=== PATIENT | male | born 1990 | race African-American/Black ===

== ENCOUNTER 2018-11-24 17:06 | Emergency (ER) | payer MEDICAID ==
[~2018-11-24] VITALS: Ht 175.3 cm; Wt 82.0 kg
[~2018-11-24 17:06] MED LIST: HYDR1TAB4 PO; SULF-165 PO
[2018-11-24] MEDS ORDERED: HYDROCODONE/ACETAMINOPHEN 5/325MG TABLET PO ONE (18:45)
[2018-11-24 20:42] VITALS: BP 112/76
== END 2018-11-24 20:42 | disposition home or self-care (01) ==
LOC: ER 17:06
DX: S92.252A Displaced fracture of navicular [scaphoid] of left foot, initial encounter for closed fracture (principal); J45.909 Unspecified asthma, uncomplicated; F12.10 Cannabis abuse, uncomplicated; Z79.899 Other long term (current) drug therapy; Y04.0XXA Assault by unarmed brawl or fight, initial encounter; Y93.89 Activity, other specified; Y92.89 Other specified places as the place of occurrence of the external cause; Y99.8 Other external cause status
CPT/HCPCS: 29125; 73110; 73130; 99283

== ENCOUNTER 2018-11-26 11:40 | Emergency (ER) | payer MEDICAID ==
[~2018-11-26] VITALS: Ht 175.3 cm; Wt 82.0 kg
[2018-11-26] MEDS ORDERED: IBUPROFEN 600MG TABLET PO ONE (12:45)
[2018-11-26] MEDS ORDERED: ACETAMINOPHEN WITH CODEINE 300/30MG TABLET PO ONE (15:30)
[2018-11-26 15:39] VITALS: BP 124/77
== END 2018-11-26 15:57 | disposition home or self-care (01) ==
LOC: ER 11:40
DX: S92.252A Displaced fracture of navicular [scaphoid] of left foot, initial encounter for closed fracture (principal); X58.XXXA Exposure to other specified factors, initial encounter; Y93.89 Activity, other specified; Y92.89 Other specified places as the place of occurrence of the external cause; Y99.8 Other external cause status; F12.10 Cannabis abuse, uncomplicated; J45.909 Unspecified asthma, uncomplicated
CPT/HCPCS: 29125; 73200; 99284

== ENCOUNTER 2019-01-04 20:56 | Emergency (ER) | payer MEDICAID, OTHER ==
[~2019-01-04] VITALS: Ht 175.3 cm; Wt 81.0 kg
[2019-01-04] MEDS ORDERED: HYDROCODONE/ACETAMINOPHEN 5/325MG TABLET PO ONE (23:00)
[2019-01-05 01:13] VITALS: BP 119/56
== END 2019-01-05 01:14 | disposition home or self-care (01) ==
LOC: ER 20:56
DX: S70.01XA Contusion of right hip, initial encounter (principal); J45.909 Unspecified asthma, uncomplicated; W22.8XXA Striking against or struck by other objects, initial encounter; Y93.89 Activity, other specified; Y92.89 Other specified places as the place of occurrence of the external cause; Y99.8 Other external cause status
CPT/HCPCS: 73522; 99283

== ENCOUNTER 2019-02-12 21:14 | Emergency (ER) | payer MEDICAID ==
[~2019-02-12] VITALS: Ht 175.3 cm; Wt 81.0 kg
[2019-02-12 22:58] VITALS: BP 113/75
== END 2019-02-12 22:59 | disposition home or self-care (01) ==
LOC: ER 21:22
DX: M25.551 Pain in right hip (principal); M79.604 Pain in right leg; Z87.828 Personal history of other (healed) physical injury and trauma; F12.90 Cannabis use, unspecified, uncomplicated
CPT/HCPCS: 99283

== ENCOUNTER 2019-02-18 13:21 | Emergency (ER) | payer MEDICAID ==
[~2019-02-18] VITALS: Ht 175.3 cm; Wt 82.0 kg
[2019-02-18 15:21] VITALS: BP 113/88
== END 2019-02-18 15:24 | disposition home or self-care (01) ==
LOC: ER 13:21
DX: M25.551 Pain in right hip (principal); J45.901 Unspecified asthma with (acute) exacerbation; F12.10 Cannabis abuse, uncomplicated; Z79.899 Other long term (current) drug therapy
CPT/HCPCS: 99281